=== PATIENT | female | born 2000 | race Caucasian/White ===

== ENCOUNTER 2022-06-20 17:25 | Emergency (ER) | payer BC, SELFPAY ==
[2022-06-20 17:27] VITALS: BP 126/95; PULSE 100; RESP 16; TEMP 36.8; O2SAT 95; BMI 24.2
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
[2022-06-20] MEDS: hydrOXYzine 10 MG Tablet PO (18:34)
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
[2022-06-20 18:46] VITALS: PULSE 98; RESP 17; O2SAT 98
--- NOTE | 2022-06-22 10:38 | CM.ED ---
PAZ MULLEN called patient to follow up with her after she was in the ED. Patient said that the medication is helping and she is doing better. She got 3 hours of sleep last night. She said that her friend sent her a mediation kay called [employer] that she plans to use tonight. Patient voiced that she wishes she was sleeping better but in regards to the past week when she was not sleeping at all her sleep has improved. Patient was educated that if she needs any additional services that the ED is available 19/03. Myrna JOHNSON
== END 2022-06-20 18:49 | disposition home or self-care (01) ==
LOC: ED 18:40
PROVIDERS: Emergency Provider Emergency Medicine; Visit Provider Emergency Medicine
DX: Z00.8 Encounter for other general examination (principal)
CPT/HCPCS: 99283

== ENCOUNTER 2023-06-26 01:57 | Emergency (ER) | payer SELFPAY ==
[2023-06-26 01:58] VITALS: BP 123/75; PULSE 108; RESP 18; TEMP 36.4; O2SAT 98; BMI 28.0
--- NOTE | 2023-06-26 02:06 | EDS_ITS ---
HPI History of Present Illness Chief Complaint: Lower Extremity Injury Narrative Narrative: Patient presents his with right knee pain. She has a history of ACL repair 2 years ago, she did a lot of activity recently and now noticed swelling in her right knee. She is still able to ambulate. She has no fevers or chills. No other trauma. PFSH PFSH Home Medications NK 06/26/23 [History Last Taken Unknown] Allergy/AdvReac Type Severity Reaction Status Date / Time No Known Allergies Allergy Verified 06/26/23 02:00 Surgical History (Updated 06/26/23 @ 02:01 by Neno Sanchez) H/O knee surgery S/P ACL repair Social History Smoking Status: Never smoker ROS ROS ED ROS Narrative Past medical history: none Medications: Reviewed Social history: Noncontributory Review of systems: Musculoskeletal: Knee pain as in HPI Skin: No abrasions or lacerations Neurological: No weakness or paresthesias Hematologic: No easy bleeding or easy bruising EXAM Physical Exam Narrative Exam Narrative: Physical exam General: Patient does not appear in significant distress . Extremities: Old surgical scar is seen on the right knee. The knee does have a slight effusion, however there is no erythema or calor. Patient does not have any laxity on anterior posterior medial or lateral stressors. She has a normal intact extensor mechanism. Skin: No abrasions, no lacerations Neurological: Normal strength and sensation Const Vital Signs: 06/26/23 01:58 Temperature 97.5 F L Temperature Source Temporal Pulse Rate 108 H Respiratory Rate 18 Blood Pressure 123/75 H Blood Pressure Mean 91 Pulse Ox 98 Oxygen Delivery Method Room Air MDM MDM MDM Narrative Medical decision making narrative: Sustained a knee strain. At this time there is no evidence of ACL being torn, there was her primary concern. She has no bony tenderness therefore I do not believe she needs an x-ray. I told her the effusion would likely self resolve. It is relatively small and I do not believe she would benefit from arthrocentesis. There is no evidence of infection at this time there is no evidence of any kind of bone trauma. I will discharge her with reassurance she can take [id number] NSAIDs at home. Discharge Plan Triage Chief Complaint: Lower Extremity Injury ED Provider: Young Das Dx/Rx/DC Orders Clinical Impression: Effusion of knee, Knee strain Instructions: ED Knee Sprain Prescriptions: No Action NK Primary Care Provider: [facility] Doctor,Out of Referrals: [facility] Doctor,Out of [Primary Care Provider] - 3-5 Days Disposition Disposition: Home, Self Care
== END 2023-06-26 02:14 | disposition home or self-care (01) ==
LOC: ED 02:12
PROVIDERS: Emergency Provider Emergency Medicine; Visit Provider Emergency Medicine
DX: S86.811A Strain of other muscle(s) and tendon(s) at lower leg level, right leg, initial encounter (principal); M25.461 Effusion, right knee; X58.XXXA Exposure to other specified factors, initial encounter
CPT/HCPCS: 99282